=== PATIENT | female | born 1985 | race Hispanic/Latino ===

== ENCOUNTER 2024-02-17 19:44 | Emergency (ER) | payer OTHER ==
[~2024-02-17] VITALS: Ht 157.5 cm; Wt 77.1 kg
[2024-02-17] MEDS: KETOROLAC 60 MG VIAL (30MG/ML) IM ONE (20:56)
[2024-02-17 20:58] VITALS: BP 122/76; PULSE 77; RESP 18; O2SAT 98
[2024-02-17] MEDS ORDERED: IBUP-2077 PO (21:34)
== END 2024-02-17 21:53 | disposition home or self-care (01) ==
LOC: EDH 19:44
DX: M77.9 Enthesopathy, unspecified (principal)
CPT/HCPCS: 99283; 73080; 96372; J1885